=== PATIENT | female | born 1965 | race Caucasian/White ===

== ENCOUNTER 2020-10-03 08:10 | Outpatient (REF) | payer OTHER, SELFPAY | END 2020-10-03 08:11 | disposition home or self-care (01) | LOC: HO.LAB 08:10 | PROVIDERS: PCP Internal Medicine; Visit Provider Obstetrics & Gynecology | DX: N95.0 Postmenopausal bleeding (principal); R87.610 Atypical squamous cells of undetermined significance on cytologic smear of cervix (ASC-US); R87.810 Cervical high risk human papillomavirus (HPV) DNA test positive | CPT/HCPCS: 57454; 88305 ==

== ENCOUNTER → 2020-10-21 12:35 | Outpatient (BNVA) | payer OTHER, SELFPAY | PROVIDERS: Visit Provider Obstetrics & Gynecology | DX: Z76.89 Persons encountering health services in other specified circumstances (principal) ==

== ENCOUNTER 2020-10-30 10:59 | Outpatient (REF) | payer OTHER, SELFPAY ==
--- NOTE | 2020-10-30 11:03 | MM_ITS ---
EXAMINATION: MM SCREENING DIGITAL MAMMOGRAPHY, BILATERAL CLINICAL INFORMATION: Screening. Asymptomatic. No prior breast surgery. No known family history breast cancer. The lifetime risk of breast cancer based on the Tyrer-Cuzick Model is 10%. COMPARISON: Outside mammography: 09/08/2018, 08/23/2018 ([facility]). TECHNIQUE: Digital mammography is performed in craniocaudal and mediolateral oblique views along with computer-aided detection (CAD). Additional left view is provided. FINDINGS: There are scattered areas of fibroglandular density (ACR BI-RADS breast composition Category b). Parenchymal pattern is similar to prior outside exams. There is no significant mass or architectural abnormality or abnormal calcifications. Minor bilateral asymmetries are stable. The axilla and skin contours are unremarkable. MM/MM screening mammo BI IMPRESSION: No significant changes from prior outside exams. ASSESSMENT: BI-RADS 1: Negative RECOMMENDATION: Routine annual mammography screening. This patient's information was entered into a reminder system with a target due date for their next mammogram.
== END 2020-10-30 11:00 | disposition home or self-care (01) ==
LOC: HO.MAMMO 10:59
PROVIDERS: Visit Provider Obstetrics & Gynecology
DX: Z12.31 Encounter for screening mammogram for malignant neoplasm of breast (principal)
CPT/HCPCS: 77067

== ENCOUNTER 2020-12-23 16:00 | Outpatient (REF) | payer OTHER, SELFPAY ==
--- NOTE | 2020-12-23 16:04 | US_ITS ---
EXAMINATION: US PELVIS COMPLETE. CLINICAL INFORMATION: Postmenopausal bleeding. COMPARISON: None TECHNIQUE: Transabdominal and transvaginal imaging of pelvis was performed. FINDINGS: The uterus is anteverted and anteflexed measuring 13 cm in length, 7.3 cm in AP and 10.7 cm in transverse dimension. There are two hypoechoic lesions. The largest lesion in the center of the fundus/body of the uterus, measures 9.6 x 7.3 x 8.1 cm. The second hypoechoic lesion in the left lower body of uterus measures 1.9 x 1.4 x 1.4 cm. The endometrial thickness is 0.2 cm. Both ovaries are not seen. There is no adnexal mass or free fluid. US/US pelvic complete IMPRESSION: 1. Two uterine fibroids. The largest uterine fibroid measuring 9.6 cm occupies the center of the uterus. 2. Ovaries are unremarkable. No adnexal mass or free fluid seen.
--- NOTE | 2020-12-23 16:04 | US_ITS ---
EXAMINATION: US PELVIS COMPLETE. CLINICAL INFORMATION: Postmenopausal bleeding. COMPARISON: None TECHNIQUE: Transabdominal and transvaginal imaging of pelvis was performed. FINDINGS: The uterus is anteverted and anteflexed measuring 13 cm in length, 7.3 cm in AP and 10.7 cm in transverse dimension. There are two hypoechoic lesions. The largest lesion in the center of the fundus/body of the uterus, measures 9.6 x 7.3 x 8.1 cm. The second hypoechoic lesion in the left lower body of uterus measures 1.9 x 1.4 x 1.4 cm. The endometrial thickness is 0.2 cm. Both ovaries are not seen. There is no adnexal mass or free fluid. US/US transvaginal IMPRESSION: 1. Two uterine fibroids. The largest uterine fibroid measuring 9.6 cm occupies the center of the uterus. 2. Ovaries are unremarkable. No adnexal mass or free fluid seen.
== END 2020-12-23 16:01 | disposition home or self-care (01) ==
LOC: HO.US 16:00
PROVIDERS: Visit Provider Obstetrics & Gynecology
DX: N95.0 Postmenopausal bleeding (principal); D21.9 Benign neoplasm of connective and other soft tissue, unspecified
CPT/HCPCS: 76830; 76856

== ENCOUNTER → 2021-01-01 15:09 | Outpatient (BNVA) | payer OTHER, SELFPAY | PROVIDERS: Visit Provider Obstetrics & Gynecology ==

== ENCOUNTER → 2021-01-15 15:58 | Outpatient (BNVA) | payer OTHER, SELFPAY | PROVIDERS: Visit Provider Obstetrics & Gynecology ==

== ENCOUNTER 2021-07-15 12:59 | Outpatient (REF) | payer OTHER, SELFPAY ==
--- NOTE | ~2021-07-15 | US_ITS ---
EXAMINATION: US PELVIS COMPLETE US PELVIS TRANSVAGINAL CLINICAL INFORMATION: Fibroids. Postmenopausal. COMPARISON: None. TECHNIQUE: Transabdominal and transvaginal imaging was performed. FINDINGS: The uterus is enlarged and measures 16.3 x 8.5 x 10.2 cm for a volume of 740 mL. Fibroids are redemonstrated measuring 9.9 x 8.2 x 9.4 cm and 1.9 x 1.6 x 1.4 cm, not significantly changed. Endometrium may be partially visualized measuring 0.3 cm. Evaluation significantly limited due to the large uterine fibroid. Both ovaries are of normal size and echogenicity. The right measures 1.9 x 1.7 x 1.2 cm for a volume of 2 mL. The left measures 1.4 x 1.2 x 1.1 cm for a volume of 1 mL. There is no pelvic free fluid. US/US pelvic complete IMPRESSION: Redemonstration of uterine fibroids, not significant change when compared to the prior ultrasound. Possible partially visualized endometrium without significant endometrial thickening. Sonographically unremarkable right and left ovary.
--- NOTE | ~2021-07-15 | US_ITS ---
EXAMINATION: US PELVIS COMPLETE US PELVIS TRANSVAGINAL CLINICAL INFORMATION: Fibroids. Postmenopausal. COMPARISON: None. TECHNIQUE: Transabdominal and transvaginal imaging was performed. FINDINGS: The uterus is enlarged and measures 16.3 x 8.5 x 10.2 cm for a volume of 740 mL. Fibroids are redemonstrated measuring 9.9 x 8.2 x 9.4 cm and 1.9 x 1.6 x 1.4 cm, not significantly changed. Endometrium may be partially visualized measuring 0.3 cm. Evaluation significantly limited due to the large uterine fibroid. Both ovaries are of normal size and echogenicity. The right measures 1.9 x 1.7 x 1.2 cm for a volume of 2 mL. The left measures 1.4 x 1.2 x 1.1 cm for a volume of 1 mL. There is no pelvic free fluid. US/US transvaginal IMPRESSION: Redemonstration of uterine fibroids, not significant change when compared to the prior ultrasound. Possible partially visualized endometrium without significant endometrial thickening. Sonographically unremarkable right and left ovary.
== END 2021-07-15 13:00 | disposition home or self-care (01) ==
LOC: HO.US 12:59
PROVIDERS: PCP Internal Medicine; Visit Provider Obstetrics & Gynecology
DX: D21.9 Benign neoplasm of connective and other soft tissue, unspecified (principal); N95.9 Unspecified menopausal and perimenopausal disorder
CPT/HCPCS: 76830; 76856

== ENCOUNTER → 2021-07-22 11:15 | Outpatient (BNVA) | payer OTHER, SELFPAY | PROVIDERS: PCP Internal Medicine; Visit Provider Obstetrics & Gynecology ==

== ENCOUNTER 2022-01-26 08:17 | Outpatient (REF) | payer OTHER, SELFPAY ==
[2022-01-30 23:26] LABS: HPV 16 RNA NOT DETECTED (NOT DETECTED); HPV mRNA E6/E7 rflx Detected (Not Detected)
== END 2022-01-26 08:18 | disposition home or self-care (01) ==
LOC: HO.LAB 08:17
PROVIDERS: Advanced Practice Midwife; PCP Internal Medicine; Visit Provider Obstetrics & Gynecology
DX: Z01.419 Encounter for gynecological examination (general) (routine) without abnormal findings (principal); Z11.51 Encounter for screening for human papillomavirus (HPV)
CPT/HCPCS: 87624; 87625; 88142

== ENCOUNTER 2022-02-19 10:50 | Outpatient (REF) | payer OTHER, SELFPAY ==
--- NOTE | ~2022-02-19 | US_ITS ---
EXAM: Pelvic Ultrasound CLINICAL INDICATION: Myoma. Postmenopausal bleeding. COMPARISON: Pelvic ultrasound 07/15/2021 TECHNIQUE: The pelvis was evaluated using transabdominal and transvaginal imaging. FINDINGS: The uterus measures 14.8 x 8.4 x 9.0 cm in longitudinal by AP by transverse dimension. The endometrial stripe was not clearly visualized due to obscuration from large approximately 9 cm fibroid. There are a few approximately 1 cm fibroid also noted. Approximately 1 cm nabothian cyst identified within the cervix. Neither ovary was clearly visualized. There are no abnormal adnexal masses. There is no free fluid in the pelvis. US/US pelvic and transvaginal IMPRESSION: Large approximately 9 cm uterine fibroid again demonstrated. Endometrium obscured by the fibroid and therefore not evaluated.
== END 2022-02-19 10:51 | disposition home or self-care (01) ==
LOC: HO.US 10:50
PROVIDERS: Visit Provider Obstetrics & Gynecology
DX: D25.9 Leiomyoma of uterus, unspecified (principal)
CPT/HCPCS: 76830; 76856

== ENCOUNTER → 2022-02-26 12:07 | Outpatient (BNVA) | payer OTHER, SELFPAY | PROVIDERS: Visit Provider Obstetrics & Gynecology | DX: D21.9 Benign neoplasm of connective and other soft tissue, unspecified (principal) | CPT/HCPCS: Q3014 ==

== ENCOUNTER 2022-03-25 08:31 | Outpatient (REF) | payer OTHER, SELFPAY ==
--- NOTE | ~2022-03-25 | MM_ITS ---
EXAMINATION: MM SCREENING DIGITAL BREAST TOMOSYNTHESIS, BILATERAL CLINICAL INFORMATION: Screening. Asymptomatic. The lifetime risk of breast cancer based on the Tyrer-Cuzick Model is 9%. COMPARISON: Mammography: 10/30/2020; outside mammography 09/08/2018, 08/23/2018 ([facility]). TECHNIQUE: Digital breast tomosynthesis is performed in both the craniocaudal and mediolateral oblique views along with computer-aided detection (CAD). Synthesized 2D images are generated from the tomosynthesis. FINDINGS: There are scattered areas of fibroglandular density (ACR BI-RADS breast composition Category b). There are no significant masses, abnormal calcifications, or other abnormalities. The axilla and skin contours are unremarkable. There are no significant changes. MM/MM tomosynthesis screening BI IMPRESSION: No mammographic evidence of malignancy. ASSESSMENT: BI-RADS 1: Negative RECOMMENDATION: Routine annual mammography screening. This patient's information was entered into a reminder system with a target due date for their next mammogram.
== END 2022-03-25 08:32 | disposition home or self-care (01) ==
LOC: HO.MAMMO 08:31
PROVIDERS: Visit Provider Obstetrics & Gynecology
DX: Z12.31 Encounter for screening mammogram for malignant neoplasm of breast (principal)
CPT/HCPCS: 77063; 77067

== ENCOUNTER 2023-04-05 08:29 | Outpatient (REF) | payer OTHER, SELFPAY ==
[2023-04-09 03:39] LABS: HPV 16 RNA NOT DETECTED (NOT DETECTED); HPV mRNA E6/E7 rflx Detected (Not Detected)
== END 2023-04-05 08:30 | disposition home or self-care (01) ==
LOC: HO.LNP 08:29
PROVIDERS: Visit Provider Obstetrics & Gynecology
DX: Z01.419 Encounter for gynecological examination (general) (routine) without abnormal findings (principal); Z11.51 Encounter for screening for human papillomavirus (HPV); R87.612 Low grade squamous intraepithelial lesion on cytologic smear of cervix (LGSIL)
CPT/HCPCS: 87624; 87625; 88142

== ENCOUNTER 2023-05-12 08:15 | Outpatient (REF) | payer OTHER, SELFPAY ==
--- NOTE | ~2023-05-12 | MM_ITS ---
EXAMINATION: MM SCREENING DIGITAL BREAST TOMOSYNTHESIS, BILATERAL CLINICAL INFORMATION: Screening. Asymptomatic. The lifetime risk of breast cancer based on the Tyrer-Cuzick Model is 9%. COMPARISON: Mammography: 03/25/2022, 10/30/2020, 09/08/2018; outside mammography 08/23/2018 ([facility]). TECHNIQUE: Digital breast tomosynthesis is performed in both the craniocaudal and mediolateral oblique views along with computer-aided detection (CAD). Synthesized 2D images are generated from the tomosynthesis. FINDINGS: There are scattered areas of fibroglandular density (ACR BI-RADS breast composition Category b). There are no significant masses, abnormal calcifications, or other abnormalities. Parenchymal pattern is similar to prior studies. There are scattered minor asymmetries similar to previous exams. No developing density or architectural abnormality. The axilla and skin contours are unremarkable. MM/MM tomosynthesis screening BI IMPRESSION: No mammographic evidence of malignancy. ASSESSMENT: BI-RADS 2: Benign RECOMMENDATION: Routine annual mammography screening. This patient's information was entered into a reminder system with a target due date for their next mammogram.
== END 2023-05-12 08:16 | disposition home or self-care (01) ==
LOC: HO.MAMMO 08:15
PROVIDERS: PCP Internal Medicine; Visit Provider Obstetrics & Gynecology
DX: Z12.31 Encounter for screening mammogram for malignant neoplasm of breast (principal)
CPT/HCPCS: 77063; 77067

== ENCOUNTER → 2023-05-25 08:07 | Outpatient (BNVA) | payer OTHER, SELFPAY | PROVIDERS: PCP Internal Medicine; Visit Provider Nurse Practitioner | DX: Z01.818 Encounter for other preprocedural examination (principal) | CPT/HCPCS: 99202 ==

== ENCOUNTER 2023-12-07 14:52 | Outpatient (REF) | payer OTHER, SELFPAY | END 2023-12-07 14:53 | disposition home or self-care (01) | LOC: HO.LNP 14:52 | PROVIDERS: PCP Internal Medicine; Visit Provider Obstetrics & Gynecology | DX: R87.612 Low grade squamous intraepithelial lesion on cytologic smear of cervix (LGSIL) (principal); Z78.0 Asymptomatic menopausal state | CPT/HCPCS: 57454; 88305; 88342; 88360 ==

== ENCOUNTER 2023-12-07 14:52 | Outpatient (AMB) | payer OTHER, SELFPAY ==
[2023-12-07 15:13] VITALS: BP 110/70; BMI 23.1
--- NOTE | 2023-12-07 15:13 | MHC.OFFVIS ---
Intake Vital Signs 12/07/23 15:13 Height 5 ft 6 in Weight 143 lb 4.807 oz BMI 23.1 BP 110/70 Intake Visit Reasons: Colposcopy Pipe Layer Helper Required: No Information Interpreted: non-clinical & clinical Director Food And Beverage: Director Food And Beverage Present (Yoselin MCCORMACK) Accompanied by: Self / Same As Patient Allergies No Known Allergies Allergy (Verified 12/07/23 15:17) Post menopausal: Yes HPI HPI Comments History of Present Illness Details Presenting for colposcopy Pap smear showed CINDY 1 HPV E6/E7 positive [facility] Medical History History of postmenopausal bleeding ASCUS with positive high risk HPV Surgical History Hx of laparoscopy Social History Household Members Other:: son Housing: Apartment Alcohol intake: current Alcohol intake frequency: holidays/special occasions only Patient Tobacco Use Status: Never used Tobacco Current occupational status: employed Current occupation: [employer] Sexual orientation: Straight/Heterosexual Gender identity: Female Physical Exam Vital Signs: Last Vital Signs BP 110/70 12/07/23 15:13 BMI result Body Mass Index 23.1 Office Procedures Colposcopy Before the procedure was started discussed with the patient the procedure, alternatives & all the risks associated with the procedure (bleeding, infection, injury to vagina, bladder, vessels, possible need for transfusion with all its risks) then patient signed the consent Pap smear = CINDY 1/E6/E7 positive Speculum inserted, acetic acid used Colposcopy done Transformation zone seen, acetowhite lesions identified at 12 o?clock, cervical biopsies taken from 12 o?clock, ECC done afterwards. Vaginoscopy of the upper vagina showed no evidence of any aceto-white lesions Monsel solution used for hemostasis. The patient tolerated well . At the end the patient was instructed to call if temp>100.4, abdominal pain, n/v, bleeding; The patient was given the following instructions: nothing per vagina, no intercourse or bath tub use. All questions answered the patient verbalized understanding. Instructed the patient to make an appointment in 2 weeks for follow-up This note was generated with a voice recognition program. Some errors may have been overlooked during the review of this note. Sometimes these errors may affect the content or meaning of a given sentence. 30490-Kapgecejc of cervix including upper vagina with biopsy and ECC Procedure code (CPT) selection complete Assessment & Plan Assessment & Plan (1) LGSIL on Pap smear of cervix: Code(s): R87.612 - Low grade squamous intraepithelial lesion on cytologic smear of cervix (LGSIL) Plan: Colposcopy done, see procedure note Orders: Orders AMB Colposcopy Today R87.612 - Low grade squamous intraepithelial lesion on cytologic smear of cervix (LGSIL) Coding Level of Care Code Procedure Only Diagnoses LGSIL on Pap smear of cervix R87.612 CPT Codes Colposcopy - CPT: 54711-Vfokfthlx of cervix including upper vagina with biopsy and ECC ([id number])
== END 2023-12-07 15:38 | disposition home or self-care (01) ==
LOC: HO.HWS 14:52
PROVIDERS: PCP Internal Medicine; Visit Provider Obstetrics & Gynecology
DX: R87.612 Low grade squamous intraepithelial lesion on cytologic smear of cervix (LGSIL) (principal)
CPT/HCPCS: 57454

== ENCOUNTER 2023-12-27 08:08 | Outpatient (AMB) | payer OTHER, SELFPAY ==
--- NOTE | 2023-12-27 08:12 | MHC.OFFVIS ---
Intake Vital Signs 12/27/23 08:13 Height 5 ft 6 in Weight 143 lb BMI 23.1 BP 110/74 Intake Visit Reasons: Colpo Results/pre op leep Principal Technical Specialist: Principal Technical Specialist Present Accompanied by: Son Allergies No Known Allergies Allergy (Verified 12/27/23 08:12) Is last menstrual period known: Yes Last menstrual period: 09/26/20 Post menopausal: No Patient : No Do you need a note to return to daycare/school/sports/work: Yes (for surgery on wednesday) HPI HPI Comments History of Present Illness Details Presenting post colpo for follow-up. The patient is doing well with no complaints. The pathology showed the following: A. Endocervix, curettage: Detached strips of dysplastic squamous epithelium with crush artifact and features compatible with high-grade squamous intraepithelial lesion (moderate dysplasia, CINDY 2); no endocervical glandular epithelium seen. B. Cervix, 12:00, biopsy: Squamous mucosa; negative for dysplasia; no endocervical glandular epithelium seen [facility] Medical History History of postmenopausal bleeding ASCUS with positive high risk HPV Surgical History Hx of laparoscopy Social History Household Members Other:: son Housing: Apartment Alcohol intake: current Alcohol intake frequency: holidays/special occasions only Patient Tobacco Use Status: Never used Tobacco Current occupational status: employed Current occupation: [employer] Sexual orientation: Straight/Heterosexual Gender identity: Female Female Reproductive History Menstrual Date of last menstrual period: 09/26/20 Total pregnancies: 2 Full term: 2 Review of Systems Card Reports as per HPI and Reports no additional complaints Resp Reports as per HPI and Reports no additional complaints GI Reports as per HPI and Reports no additional complaints Reports as per HPI Physical Exam Vital Signs: Last Vital Signs BP 110/74 12/27/23 08:13 BMI result Body Mass Index 23.1 Const General: cooperative, healthy appearing and comfortable Resp Effort & Inspection: normal respiratory effort Auscultation: clear to auscultation bilaterally Percussion: percussion normal Cardio Palpation: normal PMI Rate: regular rate Rhythm: regular rhythm Heart sounds: no murmurs and no rubs Peripheral pulses: Peripheral pulses 2+ throughout GI Inspection: Yes normal to inspection Palpation (GI): Soft to palpation, nontender, no guarding, not rigid and No hepatosplenomegaly present Percussion: Yes normal to percussion Auscultation: normal bowel sounds Rectal Exam - Female: deferred Assessment & Plan Assessment & Plan (1) CINDY II (cervical intraepithelial neoplasia II): Comment: Positive ECC Code(s): N87.1 - Moderate cervical dysplasia Plan: Discussed with the patient the pathology results of the colposcopy biopsies & endocervical curettage ( moderate dysplasia-CINDY 2). Discussed with the patient the sensitivity specificity, positive and negative predictive value in detecting cervical cancer in addition discussed the regression, persistence and progression rates. Addition discussed with the patient the risk of progression to cancer and impact of excision procedure on her future . Per ASCCP guidelines, 2 options of management were discussed with the patient including either observation with HPV based screening and colposcopy biopsy at 6 months and 12 months versus a diagnostic excisional procedures, which is the preferred method of management. The patient is concerned more about the progression of CINDY 2 to cancer ; all the pros and cons and risks and benefits of the procedure were discussed with the patient, the patient verbalized understanding and agreed with the plan Coding Level of Care Code Est Pt Level 3 (55908) Diagnoses CINDY II (cervical intraepithelial neoplasia II) N87.1
[2023-12-27 08:13] VITALS: BP 110/74; BMI 23.1
== END 2023-12-27 09:46 | disposition home or self-care (01) ==
LOC: HO.HWS 08:08
PROVIDERS: PCP Internal Medicine; Visit Provider Obstetrics & Gynecology
DX: N87.1 Moderate cervical dysplasia (principal)
CPT/HCPCS: 99213

== ENCOUNTER → 2023-12-27 08:08 | Outpatient (BNVA) | payer OTHER, SELFPAY | PROVIDERS: PCP Internal Medicine; Visit Provider Obstetrics & Gynecology | DX: N87.1 Moderate cervical dysplasia (principal) | CPT/HCPCS: 99212 ==

== ENCOUNTER 2024-01-07 11:17 | Day surgery (SDC) | payer OTHER, SELFPAY ==
[2024-01-04 15:47] VITALS: BMI 23.1
--- NOTE | 2024-01-06 09:17 | P.CONAN_ITS ---
Documented by User: Stephanie Granado NP 01/06/24 09:18 HPI - Anesthesia Eval Consult details Narrative: 58yo F for LEEP,possible loop electric excision,possible loop electrical,cone and post endocervical curettage PMFSH Active Problems Active Problems: All Active Problems (Updated 12/27/23 @ 08:25 by Benedicto Kumar MD) CINDY II (cervical intraepithelial neoplasia II) (Acute) Depression with anxiety (Acute) ADHD (Acute) Pre-op examination (Acute) Encounter for screening colonoscopy (Acute) LGSIL on Pap smear of cervix (Acute) Well woman exam (Acute) Myoma (Acute) Screening mammogram, encounter for (Acute) Postmenopausal bleeding (Acute) Past Medical History Medical History (Updated 01/07/24 @ 11:25 by Zaina Haque RN) Depression Anxiety History of uterine fibroid History of postmenopausal bleeding ASCUS with positive high risk HPV Surgical History Surgical History Hx of laparoscopy Social History Social History Household Members Other:: son Housing: Apartment Alcohol intake: current Alcohol intake frequency: holidays/special occasions only Patient Tobacco Use Status: Never used Tobacco Use of substances other than those prescribed or required for medical reasons: No Are you DNR?: No Advance Directives: No Advance Directives Information Provided: Yes Current occupational status: employed Current occupation: [employer] Sexual orientation: Straight/Heterosexual Gender identity: Female Meds Allergies Allergy/AdvReac Type Severity Reaction Status Date / Time No Known Allergies Allergy Verified 01/07/24 11:24 Home Medications Medication Instructions Recorded Confirmed Last Taken Type multivitamin 1 tab PO DAILY 10/03/20 01/07/24 Unknown History sertraline 100 mg tablet (Zoloft) 100 mg PO DAILY 10/21/20 01/07/24 Unknown History dextroamphetamine-amphetamine ER 1 cap PO QAM 05/25/23 01/07/24 Unknown History 25 mg 24hr capsule,extend release Exam Height,Weight and Vital Signs: Height 5 ft 6 in Weight 64.864 kg Assessment and Plan Assessment Anesthesia Assessment: Chart Reviewed Documented by User: Nishi Lord MD 01/07/24 12:29 [facility] Past Medical History Medical History (Updated 01/07/24 @ 11:25 by Zaina Haque, RN) Depression Anxiety History of uterine fibroid History of postmenopausal bleeding ASCUS with positive high risk HPV Family History Family history of problems with anesthesia: No Surgical History Surgical History Hx of laparoscopy History of Problems with Anesthesia: No Social History Social History Household Members Other:: son Housing: Apartment Alcohol intake: current Alcohol intake frequency: holidays/special occasions only Patient Tobacco Use Status: Never used Tobacco Use of substances other than those prescribed or required for medical reasons: No Are you DNR?: No Advance Directives: No Advance Directives Information Provided: Yes Current occupational status: employed Current occupation: [employer] Sexual orientation: Straight/Heterosexual Gender identity: Female Meds Allergies Allergy/AdvReac Type Severity Reaction Status Date / Time No Known Allergies Allergy Verified 01/07/24 11:24 Home Medications Medication Instructions Recorded Confirmed Last Taken Type multivitamin 1 tab PO DAILY 10/03/20 01/07/24 Unknown History sertraline 100 mg tablet (Zoloft) 100 mg PO DAILY 10/21/20 01/07/24 Unknown History dextroamphetamine-amphetamine ER 1 cap PO QAM 05/25/23 01/07/24 Unknown History 25 mg 24hr capsule,extend release Exam Airway Mallampati Class: II TM Dist: >3cm Neck ROM: Full Heart: rrr Lungs: cta Assessment and Plan Assessment Anesthesia Assessment: Anesthesia Plan Discussed Final Anesthetic Review Family History of Problems with Anesthesia: No History of Problems with Anesthesia: No NPO: Yes ASA Class: II Final Preanesthetic Review: No Changes in Pt Med Stat, Meds/Allgs Chart Reviewed and Consent Obtained/Reviewed Patient Risk: Intermediate Procedure Risk: Intermediate Anesthetic Plan Anesthetic Plan: GA Disposition: Standard PACU
[2024-01-07 11:26] VITALS: BMI 23.0
[2024-01-07 11:39] VITALS: BP 118/70; PULSE 87; RESP 15; TEMP 36.9; O2SAT 97
[2024-01-07] MEDS: Lactated Ringers 1,000 ML 100 ML IVCONT (11:53)
--- NOTE | 2024-01-07 12:35 | MHC.SHP ---
Pre-Procedural Eval Section A - 24 Hr Update-Section A only Date of Service: 01/07/24 The patient is an INPATIENT: No Changes since office visit: No Cold of Flu in the past 2 weeks, No New Medical Problems, No Changes in Medication and No Patient answered all questions The patient has been examined within 24 hours of the surgical procedure. The History & Physical has been completed within 30 days and I have reviewed it.: Yes Section B - Complete if H&P > 30 days Chief Complaint: Moderate cervical dysplasia Allergies: Allergies Allergy/AdvReac Type Severity Reaction Status Date / Time No Known Allergies Allergy Verified 01/07/24 11:24 Plan Diagnosis/Plan: Unchanged I have reviewed the history and physical and performed a pertinent physical examination on my patient. No changes have occurred unless specified. Time Spent With Patient Time: Total time managing care of this patient today ____ minutes.
--- NOTE | 2024-01-07 13:24 | PM.OP ---
Brief Operative Note Date of Service: 01/07/24 Pre-op diagnosis: CINDY 2 on ECC Post-op diagnosis: same Procedure: LEEP CONE with post CONE ECC Surgeon: Benedicto Kumar MD Anesthesia: GLMA and other (Paracervical block) Was an Imaging Assistant used for this Procedure?: No Estimated blood loss (mL): 0 Pathology: other (Posterior cervical, anterior cervical, endocervix, Post cone ECC) Condition: stable Disposition: other (Home)
--- NOTE | 2024-01-07 13:25 | P.OP_ITS ---
Operative Note Operative Note Date of Service: 01/07/24 Narrative: Pre op diagnosis: CINDY 2 on ECC Operation: Colposcopy, Loop electrical excision procedure, post cone ECC Postop diagnosis: the same Quantitative blood loss: 50 cc Surgeon: Benedicto Kumar MD, FACOG Liquor Department Manager: None Pathology: Cervical cone, top-hat endo cervical excision, endo cervical curettage Complications: none Anesthesia: GLMA and Para cervical block Procedure: The patient was put in a dorsal lithotomy position, scrubbed and draped in the usual sterile fashion. A speculum was inserted inside the patient's vagina. The cervix is assessed using the colposcope with acetic acid , the lesions were seen, and at least 1 cm of the squamocolumnar junction was observed. 20 x 5 mm size loop was selected based upon the diameter of the lesion. Lugol solution was used to outline the lesions and area of the transformation zone order to be removed 10 cc of xylocaine with epinephrine were injected submucosally into the surface of the cervix (ectocervix) at the 3, 6, 9, and 12 o'clock positions. The electrosurgical generator is set at 40 ramos on blend 1. This was followed by excision of the procedure cervical lip, anterior cervical lip. An endo cervical curettage is performed following completion of excision, and hemostasis is obtained with a Ball electrode or regular tip cautery. At the end, Monsel's solution was applied to the cone bed. The patient tolerated the procedure well and, all instruments were taken out of the patient vaginal cavity, and the patient was transferred to the PACU in stable condition.
[2024-01-07 13:29] VITALS: BP 131/72; PULSE 93; RESP 14; TEMP 36.1; O2SAT 100
[2024-01-07 13:34] VITALS: BP 121/69; PULSE 93; RESP 16; O2SAT 100
[2024-01-07 13:39] VITALS: BP 133/81; PULSE 88; RESP 16; O2SAT 100
[2024-01-07 13:44] VITALS: BP 119/80; PULSE 88; RESP 16; O2SAT 100
[2024-01-07] MEDS: oxyCODONE HCl Immed Release 5 MG TABLET PO (13:51)
[2024-01-07 13:59] VITALS: BP 136/76; PULSE 76; RESP 16; TEMP 36.1; O2SAT 100
== END 2024-01-07 14:25 | disposition home or self-care (01) ==
PROVIDERS: PCP Internal Medicine; Visit Provider Obstetrics & Gynecology
PROC: 0UBC7ZZ Excision of Cervix, Via Natural or Artificial Opening (ICD-10-PCS; CPT 57522; principal; 2024-01-07 12:50)
DX: N87.1 Moderate cervical dysplasia (principal)
CPT/HCPCS: 57461; 88300; 88307; 88342; 88360; J1885; J2405; J2704; J3010

== ENCOUNTER → 2024-01-07 11:17 | Outpatient (BNV) | payer OTHER, SELFPAY | PROVIDERS: PCP Internal Medicine; Visit Provider Obstetrics & Gynecology | DX: N87.1 Moderate cervical dysplasia (principal) | CPT/HCPCS: 57461 ==

== ENCOUNTER 2024-01-20 13:00 | Outpatient (REF) | payer OTHER, SELFPAY | END 2024-01-20 13:01 | disposition home or self-care (01) | LOC: HO.LNP 13:00 | PROVIDERS: PCP Internal Medicine; Visit Provider Obstetrics & Gynecology | DX: R30.0 Dysuria (principal); N87.1 Moderate cervical dysplasia | CPT/HCPCS: 87086; 99212 ==

== ENCOUNTER 2024-01-20 13:00 | Outpatient (AMB) | payer OTHER, SELFPAY ==
--- NOTE | 2024-01-20 13:05 | A.OFFVIS_ITS ---
Intake Vital Signs 01/20/24 13:12 Height 5 ft 6 in Weight 143 lb BMI 23.1 BP 118/74 Intake Visit Reasons: post op Allergies No Known Allergies Allergy (Verified 01/07/24 11:24) HPI HPI Comments History of Present Illness Details The patient is presenting for follow-up post LEEP cone. The patient has no complaints. The pathology showed the following: A. Cervix, anterior lip, LEEP excision: - Low-grade squamous intraepithelial les ion (CINDY 1). - Background mildly inflamed cervical tr ansformation zone mucosa with reactive changes. B. Cervix, posterior lip, LEEP excision: Inflamed squamous and endocervical mucosa with biopsy site changes. C. Endocervix, LEEP excision: - High grade squamous intraepithelial le katrin (CINDY 2), focal; negative margins. - Mildly inflamed cervical transformatio n zone mucosa with reactive changes. D. Endocervix, post cone curettage: No tissue present. [facility] Medical History Depression Anxiety History of uterine fibroid History of postmenopausal bleeding ASCUS with positive high risk HPV Surgical History Hx of laparoscopy Social History Household Members Other:: son Housing: Apartment Alcohol intake: current Alcohol intake frequency: holidays/special occasions only Patient Tobacco Use Status: Never used Tobacco Current occupational status: employed Current occupation: [employer] Sexual orientation: Straight/Heterosexual Gender identity: Female Review of Systems Const All systems reviewed & are unremarkable except as noted in HPI and below Reports as per HPI and Reports no additional complaints GI Reports no additional complaints Reports no additional complaints Assessment & Plan Assessment & Plan (1) CINDY II (cervical intraepithelial neoplasia II): Comment: Status post LEEP cone with post cone ECC negative margins Code(s): N87.1 - Moderate cervical dysplasia Plan: Discussed with the patient the results the pathology showing CINDY 2 in the endocervix with negative margins, although post cone ECC showed no endocervical tissue, but the endocervix had negative margin. Instructions given to the patient to schedule an HPV based screening in 6 months, if normal then co testing Q year x 3 , if wnl cotest q3 x 25 years check the results and treat accordingly. All questions answered patient verbalized understanding. Coding Level of Care Code Est Pt Level 3 (44964) Diagnoses CINDY II (cervical intraepithelial neoplasia II) N87.1
[2024-01-20 13:12] VITALS: BP 118/74; BMI 23.1
== END 2024-01-20 13:21 | disposition home or self-care (01) ==
LOC: HO.HWS 13:00
PROVIDERS: PCP Internal Medicine; Visit Provider Obstetrics & Gynecology
DX: N87.1 Moderate cervical dysplasia (principal)
CPT/HCPCS: 99213

== ENCOUNTER 2024-05-29 08:00 | Outpatient (REF) | payer OTHER, SELFPAY | END 2024-05-29 08:01 | disposition home or self-care (01) | LOC: HO.MAMMO 08:00 | PROVIDERS: PCP Internal Medicine; Visit Provider Internal Medicine | DX: Z12.31 Encounter for screening mammogram for malignant neoplasm of breast (principal) | CPT/HCPCS: 77063; 77067 ==

== ENCOUNTER → 2024-05-29 08:00 | Outpatient (BNV) | payer OTHER, SELFPAY | PROVIDERS: PCP Internal Medicine; Visit Provider Radiology Diagnostic Radiology | DX: Z12.31 Encounter for screening mammogram for malignant neoplasm of breast (principal) | CPT/HCPCS: 77063; 77067 ==

== ENCOUNTER 2025-06-04 08:12 | Outpatient (REF) | payer OTHER, SELFPAY ==
--- NOTE | ~2025-06-04 | MM_ITS ---
EXAMINATION: MM SCREENING DIGITAL BREAST TOMOSYNTHESIS, BILATERAL CLINICAL INFORMATION: Screening. Asymptomatic. COMPARISON: Mammography: Comparison is made with available priors TECHNIQUE: Digital breast mammography with tomosynthesis is performed in both the craniocaudal and mediolateral oblique views along with computer-aided detection (CAD). FINDINGS: There are scattered areas of fibroglandular density (ACR BI-RADS breast composition Category b). Left: Asymmetry lateral breast posterior depth on CC view. No suspicious calcifications or other abnormal findings. Right: Asymmetry lower breast posterior depth on MLO view with questioned distortion. No suspicious calcifications or other abnormal findings. MM/MM tomosynthesis screening BI IMPRESSION: Additional imaging is recommended ASSESSMENT: BI-RADS BI-RADS 0 - Incomplete: Needs additional Imaging. RECOMMENDATION: 1. Additional views of the bilateral breasts. 2. Targeted ultrasound if warranted after review of the additional views. 3. Radiology department staff will contact the patient for additional imaging. Additional Imaging required This examination should not preclude the clinical evaluation of a suspicious palpable abnormality. This patient's information was entered into a reminder system with a target due date for their next mammogram. Electronically signed by: Simona Velasquez DO 06/12/2025 01:12 PM EDT
== END 2025-06-04 08:13 | disposition home or self-care (01) ==
LOC: HO.MAMMO 08:12
PROVIDERS: Visit Provider Internal Medicine
DX: Z12.31 Encounter for screening mammogram for malignant neoplasm of breast (principal)
CPT/HCPCS: 77063; 77067

== ENCOUNTER → 2025-06-04 08:15 | Outpatient (BNV) | payer OTHER, SELFPAY | PROVIDERS: Visit Provider Internal Medicine | DX: Z12.31 Encounter for screening mammogram for malignant neoplasm of breast (principal) | CPT/HCPCS: 77063; 77067 ==

== ENCOUNTER 2025-08-06 08:51 | Outpatient (REF) | payer OTHER, SELFPAY ==
--- NOTE | ~2025-08-06 | MM_ITS ---
EXAMINATION(S): MM DIAGNOSTIC DIGITAL BREAST TOMOSYNTHESIS, BILATERAL CLINICAL INFORMATION: Call back from screening for bilateral findings: Right: Asymmetry in the lower breast posterior depth on the MLO view. Left: Asymmetry in the lateral breast posterior depth on the CC view. COMPARISON: Comparison made to multiple prior, most recent June 04, 2025, and most remote August 23, 2018. TECHNIQUE: Digital breast tomosynthesis is performed in ML 90 degrees, MLO, CC and XCCL along with computer-aided detection (CAD). Synthesized 2D images are generated from the tomosynthesis. FINDINGS: BREAST COMPOSITION: There are scattered areas of fibroglandular density (ACR BI-RADS breast composition Category b). RIGHT BREAST: Previously suggested asymmetry in the lower breast posterior depth on the MLO view is pliable with spot compression. On today's images, the local parenchyma is similar to multiple prior studies as far back as 2019, therefore, likely represented overlapping fibroglandular breast tissue. LEFT BREAST: Previously suggested asymmetry in the lateral breast posterior depth on the CC view and asymmetry seen on the MLO view upper breast posterior depth are pliable with spot compression. On today's images, the local parenchyma is similar to multiple prior studies as far back as , therefore, likely represented overlapping fibroglandular breast tissue. MM/MM tomosynthesis added view BI IMPRESSION: RIGHT BREAST: Negative, no mammographic evidence of malignancy. Normal interval follow-up is recommended in 12 months. LEFT BREAST: Negative, no mammographic evidence of malignancy. Normal interval follow-up is recommended in 12 months. ASSESSMENT: BI-RADS 1 - Negative RECOMMENDATION: 1 year F/U Results were provided to the patient at time of visit by the technologist. This patient's information was entered into a reminder system with a target due date for their next mammogram. Electronically signed by: Faby Alatorre MD 08/06/2025 10:05 AM EDT
--- OUTSIDE RECORDS SUMMARY | 2025-08-06 09:52 | XMS_ITS ---
Author Name [facility] Organization Unknown Care Team Organization Name Specialty Phone Email Start Date End Da te [facility] 10/06/20222023
== END 2025-08-06 08:52 | disposition home or self-care (01) ==
LOC: HO.MAMMO 08:51
PROVIDERS: PCP Internal Medicine; Visit Provider Obstetrics & Gynecology
DX: N64.89 Other specified disorders of breast (principal)
CPT/HCPCS: 77062; 77066

== ENCOUNTER → 2025-08-06 09:00 | Outpatient (BNV) | payer OTHER, SELFPAY | PROVIDERS: PCP Internal Medicine; Visit Provider Radiology Body Imaging | DX: R92.8 Other abnormal and inconclusive findings on diagnostic imaging of breast (principal) | CPT/HCPCS: 77062; 77066 ==

== ENCOUNTER 2025-09-24 07:53 | Outpatient (REF) | payer OTHER, SELFPAY | END 2025-09-24 07:54 | disposition home or self-care (01) | LOC: HO.LNP 07:53 | PROVIDERS: PCP Internal Medicine; Visit Provider Obstetrics & Gynecology | DX: Z01.419 Encounter for gynecological examination (general) (routine) without abnormal findings (principal); D21.9 Benign neoplasm of connective and other soft tissue, unspecified | CPT/HCPCS: 87626; 88175; 99396 ==

== ENCOUNTER 2025-09-24 07:53 | Outpatient (AMB) | payer OTHER, SELFPAY ==
[2025-09-24 07:55] VITALS: BMI 23.2
--- NOTE | 2025-09-24 07:55 | MHC.OFFVIS ---
Vital Signs 09/24/25 07:55 Height 5 ft 6 in Weight 144 lb BMI 23.2 Intake Visit Reasons: [employer] annual exam Home Care Physical Therapist Required: No Information Interpreted: non-clinical & clinical Marketing Specialist: Marketing Specialist Present (Yoselin MCCORMACK) Accompanied by: Self / Same As Patient Allergies No Known Allergies Allergy (Verified 09/24/25 07:57) Post menopausal: Yes HPI Comments Details: Presenting for annual exam. Six-months follow-up Co testing appointment scheduled but cancer but the patient No complaints. The patient has history of uterine myomas Last Pap/HPV was in 04/20 [facility] HPV positive, colpo biopsy ECC showed CINDY 2, status post LEEP cone with post cone ECC in 01/22 CINDY 2 on pathology with negative margins Last Mammogram was in 08/23 was BI-RADS 1 Last Colonoscopy PFSH Medical History Depression Anxiety History of uterine fibroid History of postmenopausal bleeding ASCUS with positive high risk HPV Surgical History Hx of laparoscopy Social History Household Members Other:: son Housing: Apartment Alcohol intake: current Alcohol intake frequency: holidays/special occasions only Patient Tobacco Use Status: Never used Tobacco Current occupational status: employed Current occupation: [employer] Sexual orientation: Straight/Heterosexual Gender identity: Female Female Reproductive History Menstrual Date of last pap smear: 04/06/23 History of abnormal pap smear: Yes (HPV +) Date of Mammogram: 08/06/25 Review of Systems Const All systems reviewed & are unremarkable except as noted in HPI and below Card Reports as per HPI Resp Reports as per HPI GI Reports as per HPI and Reports no additional complaints Reports as per HPI Physical Exam Const General: cooperative, healthy appearing and comfortable Chest Chest palpation & inspection: normal inspection of the chest and normal palpation of entire chest wall Breast/axilla inspection: normal inspection of the breasts and normal inspection of the axillae Breast/axilla palpation: normal palpation of the breasts, normal palpation of the axillae and no axillary lymphadenopathy Resp Effort & Inspection: normal respiratory effort Auscultation: clear to auscultation bilaterally Percussion: percussion normal Cardio Palpation: normal PMI Rate: regular rate Rhythm: regular rhythm Heart sounds: no murmurs and no rubs Peripheral pulses: Peripheral pulses 2+ throughout GI Inspection: Yes normal to inspection Palpation (GI): Soft to palpation, nontender, no guarding, not rigid and No hepatosplenomegaly present Percussion: Yes normal to percussion Auscultation: normal bowel sounds Rectal Exam - Female: deferred General: Yes bladder normal to palpation External Female Exam: No lesion Speculum Exam - Vagina: normal appearance of the vagina, normal palpation, normal vaginal discharge and not erythematous Speculum Exam - Cervix: normal appearance of the cervix and normal palpation Bimanual exam- vagina & uterus: normal bimanual exam, normal palpation, uterine size normal, bladder normal to palpation, consistency normal and normal palpation Bimanual Exam- Adnexa, other: normal adnexae, no masses and no tenderness Assessment & Plan Assessment & Plan (1) Well woman exam: Comment: CINDY 2 status post LEEP cone with post cone ECC negative margin in 01/22 Code(s): Z01.419 - Encounter for gynecological examination (general) (routine) without abnormal findings Category: Medical Plan: Co testing done. Counseled the patient about the recommended dietary allowance of 1200 mg of Calcium & 600 IU of vitamin D. Instructions given the patient to schedule next screening Mammogram in 08/23. The patient was referred to GI for screening colonoscopy . The patient was instructed to perform monthly self-breast exams and schedule annual exam in a year. All questions answered and the patient verbalized understanding. (2) Myoma: Code(s): D21.9 - Benign neoplasm of connective and other soft tissue, unspecified Category: Medical Plan: Ultrasound ordered, instructions given the patient to schedule an ultrasound and a follow-up appointment within 2 weeks. All questions answered, the patient verbalized understanding Orders: Orders Pap Smear Today Z01.419 - Encounter for gynecological examination (general) (routine) without abnormal findings HPV High risk Today Z01.419 - Encounter for gynecological examination (general) (routine) without abnormal findings Referrals Gastroenterology Referral Z12.11 - Encounter for screening for malignant neoplasm of colon Coding Level of Care Code Est Pt Prev Care 40-64y(16831) Diagnoses Well woman exam Z01.419 Myoma D21.9
== END 2025-09-24 08:18 | disposition home or self-care (01) ==
LOC: HO.HWS 07:53
PROVIDERS: PCP Internal Medicine; Visit Provider Obstetrics & Gynecology
DX: Z01.419 Encounter for gynecological examination (general) (routine) without abnormal findings (principal); D21.9 Benign neoplasm of connective and other soft tissue, unspecified
CPT/HCPCS: 99396; 99459

== ENCOUNTER 2025-11-20 16:18 | Outpatient (REF) | payer OTHER, SELFPAY ==
--- NOTE | ~2025-11-20 | US_ITS ---
EXAMINATION: US PELVIS CLINICAL INFORMATION: Follow up uterine fibroids COMPARISON: February 19, 2022 TECHNIQUE: Ultrasound of the pelvis is performed using both transabdominal and transvaginal transducers along with Doppler. Transvaginal imaging is performed due to inadequate visualization transabdominally. FINDINGS: Uterus: The uterus is anteflexed and bulky and measures 13.5 x 9.3 x 10.0 cm. The uterus appears heterogeneous and endometrial stripe is obscured. There is a fundal mass measuring 9.3 x 7.3 x 8.7 cm previously 9.0 x 8.2 x 7.9 cm. Adnexa: Ovaries are nonvisualized. US/US pelvic and transvaginal IMPRESSION: Fibroid uterus likely with underlying adenomyosis. Electronically signed by: Bhavik Mcintosh MD 11/20/2025 05:07 PM [facility]
== END 2025-11-20 16:19 ==
LOC: HO.US 16:18
PROVIDERS: Visit Provider Obstetrics & Gynecology
DX: D21.9 Benign neoplasm of connective and other soft tissue, unspecified (principal)
CPT/HCPCS: 76830; 76856

== ENCOUNTER → 2025-11-20 16:20 | Outpatient (BNV) | payer OTHER, SELFPAY | PROVIDERS: Visit Provider Radiology Diagnostic Radiology | DX: D25.9 Leiomyoma of uterus, unspecified (principal) | CPT/HCPCS: 76830; 76856 ==